=== PATIENT | male | born 1980 | race Caucasian/White ===

== ENCOUNTER 2020-03-15 19:08 | Emergency (ER) | payer BC ==
[2020-03-15] MEDS ORDERED: Sodium Chloride 0.9% 10 ML Syringe FLUSH PRN (19:19)
[2020-03-15] MEDS ORDERED: Ketorolac 60 MG/2 ML SDV IM ONE (19:37)
--- NOTE | 2020-03-15 19:50 | EDM.PDOC ---
ED HPI GENERAL MEDICAL PROBLEM - General Chief Complaint: Chest Pain Stated Complaint: CHEST PAIN Time Seen by Provider: 03/15/20 19:29 Source of Information: Reports: Patient, RN Notes Reviewed History Limitations: Reports: No Limitations - History of Present Illness INITIAL COMMENTS - FREE TEXT/NARRATIVE: Patient is a 39-year-old male who presents to the ED for evaluation of his right-sided chest pain. Patient notes that he developed sharp right-sided chest pain, earlier this morning, he states that it did get worse about the day, and after he dropped his kids off after work today, he states that the pain was so intense that it dropped him to his knees. He states that any sort of movement really makes it worse, and deep breathing also aggravates this. His is a sharp stabbing pain in nature. He states if he can get himself into a certain position, this seems to help make the pain go away. He did not take any sort of pain medications for this. He states that if he pushes on the area, it seems to maybe make the pain better. He denies any family history of cardiac issues, nor does he state he has any history of cardiac or lung issues. He does state that he worked out the other day, and work his chest very hard, and thought maybe it could be due to that as well. He denies any fever/chills, cough/shortness of breath, nausea/vomiting/diarrhea. - Related Data Allergies Allergy/AdvReac Type Severity Reaction Status Date / Time Sulfa (Sulfonamide Allergy Rash Verified 03/15/20 19:16 Antibiotics) Home Meds: Home Meds HYDROcodone/Ibuprofen [Hydrocodone-Ibuprofen 5-200 mg] 1 tab PO BID 03/15/20 [History] ED ROS GENERAL - Review of Systems Review Of Systems: Comprehensive ROS is negative, except as noted in HPI. ED EXAM, GENERAL - Physical Exam Exam: See Below Exam Limited By: No Limitations General Appearance: Alert, WD/WN, No Apparent Distress Eye Exam: Bilateral Eye: EOMI, Normal Inspection, PERRL Throat/Mouth: Normal Inspection, Normal Lips, Normal Teeth, Normal Gums, Normal Oropharynx, Normal Voice, No Airway Compromise Head: Atraumatic, Normocephalic Respiratory/Chest: No Respiratory Distress, Lungs Clear, Normal Breath Sounds, No Accessory Muscle Use, Other (minimal chest tenderness with palpation to upper right chest) Cardiovascular: Normal Peripheral Pulses, Regular Rate, Rhythm, No Murmur Extremities: Normal Inspection, Normal Capillary Refill Neurological: Alert, Oriented, Normal Cognition, No Motor/Sensory Deficits Psychiatric: Normal Affect, Normal Mood Skin Exam: Warm, Dry, Intact, Normal Color, No Rash Course - Vital Signs Last Recorded V/S: Last Vital Signs Temp 98.1 F 03/15/20 19:17 Pulse 100 03/15/20 19:17 Resp 16 03/15/20 19:17 BP 132/85 03/15/20 19:17 Pulse Ox 100 03/15/20 19:17 - Orders/Labs/Meds Orders: Active Orders 24 hr Category Date Time Status EKG Documentation Completion [RC] STAT Care 03/15/20 19:19 Active Peripheral IV Care [RC] . DIRECTED Care 03/15/20 19:19 Active Sodium Chloride 0.9% [Saline Flush] Med 03/15/20 19:19 Active 10 ml FLUSH ASDIRECTED PRN Peripheral IV Insertion Adult [OM.PC] Stat Oth 03/15/20 19:19 Ordered Medication Orders Sodium Chloride (Saline Flush) 10 ml FLUSH ASDIRECTED PRN PRN Reason: Keep Vein Open Last Admin: 03/15/20 20:02 Dose: 10 ml Documented by: RACHAEL Labs: Laboratory Tests 03/15/20 03/15/20 03/15/20 Range/Units 19:55 19:55 19:55 WBC 7.91 (4.23-9.07) K/mm3 RBC 4.66 (4.63-6.08) M/mm3 Hgb 15.3 (13.7-17.5) gm/dl Hct 46.6 (40.1-51.0) % MCV 100.0 H D (79.0-92.2) fl MCH 32.8 H (25.7-32.2) pg MCHC 32.8 (32.2-35.5) g/dl RDW Std Deviation 50.6 H (35.1-43.9) fL Plt Count 341 H (163-337) K/mm3 MPV 8.7 L (9.4-12.3) fl Neut % (Auto) 69.1 H (34.0-67.9) % Lymph % (Auto) 17.8 L (21.8-53.1) % Hooker % (Auto) 10.2 (5.3-12.2) % Eos % (Auto) 1.8 (0.8-7.0) Baso % (Auto) 1.0 (0.1-1.2) % Neut # (Auto) 5.46 H (1.78-5.38) K/mm3 Lymph # (Auto) 1.41 (1.32-3.57) K/mm3 Hooker # (Auto) 0.81 (0.30-0.82) K/mm3 Eos # (Auto) 0.14 (0.04-0.54) K/mm3 Baso # (Auto) 0.08 (0.01-0.08) K/mm3 PT 10.7 (9.7-12.0) SECONDS INR 1.00 APTT 24 (22-31) SECONDS Sodium 143 (136-145) mEq/L Potassium 4.1 (3.5-5.1) mEq/L Chloride 103 (98-107) mEq/L Carbon Dioxide 31 (21-32) mEq/L Anion Gap 13.1 (5-15) BUN 15 (7-18) mg/dL Creatinine 1.3 (0.7-1.3) mg/dL Est Cr Clr Drug Dosing TNP Estimated GFR (MDRD) > 60 (>60) mL/min BUN/Creatinine Ratio 11.5 L (14-18) Glucose 100 (74-106) mg/dL Calcium 8.6 (8.5-10.1) mg/dL Magnesium 2.0 (1.8-2.4) mg/dl Total Bilirubin 0.4 (0.2-1.0) mg/dL AST 53 H (15-37) U/L ALT 69 H (16-63) U/L Alkaline Phosphatase 56 (46-116) U/L Creatine Kinase (39-308) U/L Troponin I < 0.017 (0.00-0.056) ng/mL Total Protein 6.7 (6.4-8.2) g/dl Albumin 3.7 (3.4-5.0) g/dl Globulin 3.0 gm/dL Albumin/Globulin Ratio 1.2 (1-2) 03/15/20 Range/Units 19:55 WBC (4.23-9.07) K/mm3 RBC (4.63-6.08) M/mm3 Hgb (13.7-17.5) gm/dl Hct (40.1-51.0) % MCV (79.0-92.2) fl MCH (25.7-32.2) pg MCHC (32.2-35.5) g/dl RDW Std Deviation (35.1-43.9) fL Plt Count (163-337) K/mm3 MPV (9.4-12.3) fl Neut % (Auto) (34.0-67.9) % Lymph % (Auto) (21.8-53.1) % Hooker % (Auto) (5.3-12.2) % Eos % (Auto) (0.8-7.0) Baso % (Auto) (0.1-1.2) % Neut # (Auto) (1.78-5.38) K/mm3 Lymph # (Auto) (1.32-3.57) K/mm3 Hooker # (Auto) (0.30-0.82) K/mm3 Eos # (Auto) (0.04-0.54) K/mm3 Baso # (Auto) (0.01-0.08) K/mm3 PT (9.7-12.0) SECONDS INR APTT (22-31) SECONDS Sodium (136-145) mEq/L Potassium (3.5-5.1) mEq/L Chloride (98-107) mEq/L Carbon Dioxide (21-32) mEq/L Anion Gap (5-15) BUN (7-18) mg/dL Creatinine (0.7-1.3) mg/dL Est Cr Clr Drug Dosing Estimated GFR (MDRD) (>60) mL/min BUN/Creatinine Ratio (14-18) Glucose (74-106) mg/dL Calcium (8.5-10.1) mg/dL Magnesium (1.8-2.4) mg/dl Total Bilirubin (0.2-1.0) mg/dL AST (15-37) U/L ALT (16-63) U/L Alkaline Phosphatase (46-116) U/L Creatine Kinase 1000 H (39-308) U/L Troponin I (0.00-0.056) ng/mL Total Protein (6.4-8.2) g/dl Albumin (3.4-5.0) g/dl Globulin gm/dL Albumin/Globulin Ratio (1-2) Meds: Medications Generic Name Dose Route Start Last Admin Trade Name Jocelin PRN Reason Stop Dose Admin Sodium Chloride 10 ml 03/15/20 19:19 03/15/20 20:02 Saline Flush FLUSH 10 ml ASDIRECTED PRN Administration Keep Vein Open Discontinued Medications Generic Name Dose Route Start Last Admin Trade Name Jocelin PRN Reason Stop Dose Admin Ketorolac Tromethamine 60 mg 03/15/20 19:37 03/15/20 19:56 Toradol IM 03/15/20 19:38 60 mg ONETIME ONE Administration - Re-Assessments/Exams Free Text/Narrative Re-Assessment/Exam: 03/15/20 19:52 Patient is a 39-year-old male who presents to the ED for evaluation of his chest pain. After talking with the patient, there is a high suspicion for musculoskeletal etiology regarding the chest workout he did a few days ago. Nonetheless EKG was obtained and demonstrates no focal abnormalities that would be concerning for acute ischemia. Other labs will be taken to rule out cardiac etiology. 03/15/20 20:04 Chest x-ray is negative for any acute findings at this time. 03/15/20 21:10 Laboratory evaluation has resulted, the CPK is elevated at 1000, patient states that he does take creatine at home for supplements, and it could be elevated, if the patient may be worked the chest too hard or otherwise. Nonetheless patients can be discharged home with general recommendations, he states that the Toradol did make the pain 60% better. I will give him general recommendations and discharge at this time. Departure - Departure Time of Disposition: 21:11 Disposition: Home, Self-Care 01 Condition: Good Clinical Impression: Acute chest wall pain Instructions: Chest Wall Pain, [id number] Forms: ED Department Discharge Additional Instructions: You have been evaluated in the ED for your right sided chest pain. Your x-ray demonstrated no acute findings. Lab work was also unremarkable. You are not suffering from a heart attack at today's visit. Please use ice/heat as tolerated to the affected area. Please try to keep yourself well-hydrated during this time. You may take Tylenol 500 mg or ibuprofen 600mg q6 hrs for pain relief. Please do so until you have a tolerable level of pain with activity. Do not exceed 4000mg Tylenol or 3200mg ibuprofen in a 24 hour time period. Please return to ED if your symptoms should change or worsen. Sepsis Event Note (ED) - Evaluation Sepsis Screening Result: No Definite Risk - Focused Exam Vital Signs: Vital Signs Temp Pulse Resp BP Pulse Ox 03/15/20 19:17 98.1 F 100 16 132/85 100 - My Orders Last 24 Hours: My Active Orders 03/15/20 19:19 EKG Documentation Completion [RC] STAT Peripheral IV Care [RC] . DIRECTED Sodium Chloride 0.9% [Saline Flush] 10 ml FLUSH ASDIRECTED PRN Peripheral IV Insertion Adult [OM.PC] Stat - Assessment/Plan Last 24 Hours: My Active Orders 03/15/20 19:19 EKG Documentation Completion [RC] STAT Peripheral IV Care [RC] . DIRECTED Sodium Chloride 0.9% [Saline Flush] 10 ml FLUSH ASDIRECTED PRN Peripheral IV Insertion Adult [OM.PC] Stat
--- NOTE | 2020-03-15 20:02 | CR ---
Chest: Portable view of the chest was obtained. Comparison: No prior chest imaging is available. Heart size and mediastinum are normal. Lungs are clear with no acute parenchymal change. Slight scoliosis is present within the spine. Nothing acute is seen within the visualized osseous structures. Impression: 1. Nothing acute is appreciated on portable chest x-ray. Diagnostic code #1 Study was dictated in MDT
== END 2020-03-15 21:18 | disposition home or self-care (01) ==
LOC: JD.ED 19:08
DX: R07.89 Other chest pain (principal); Z88.2 Allergy status to sulfonamides
CPT/HCPCS: 36415; 71045; 80053; 82550; 83735; 84484; 85025; 85610; 85730; 93005; 96372; 99285; J1885; 93010; 99283

== ENCOUNTER 2020-10-13 08:04 | Emergency (ER) | payer BC ==
--- NOTE | 2020-10-13 09:31 | CR ---
Abdomen: Supine and upright views of the abdomen were obtained. Comparison: No prior abdominal x-rays available. Bowel gas pattern is felt to be within normal limits. No free air is seen. Bony structures are within normal limits for the patient's age. Visualized lung bases are clear. No discrete soft tissue abnormality is appreciated. No abnormal calcifications are seen. Impression: 1. Nothing acute is appreciated on 2 view abdominal x-ray. Diagnostic code #1
--- NOTE | 2020-10-13 10:15 | EDM.PDOC ---
ED HPI GENERAL MEDICAL PROBLEM - General Chief Complaint: Gastrointestinal Problem Stated Complaint: RECTAL BLEEDING AND SOB Time Seen by Provider: 10/13/20 08:23 Source of Information: Reports: Patient, RN Notes Reviewed - History of Present Illness INITIAL COMMENTS - FREE TEXT/NARRATIVE: 40 yr old male has been having abd pain on and off for about 2 wks, worse yesterday and today. He has had an uuper abd wall hernia that comes and goes for many months that has also been more bothersome the past couple of weeks. He has had some nauea, no vomting. Has also had some "mucousy" stools with at least some traces of blood. Mild upper abd pain at time of exam. Mostly worried about the hernia. Abdominal Pain Score (Numeric/FACES): 4 - Related Data Allergies Allergy/AdvReac Type Severity Reaction Status Date / Time Sulfa (Sulfonamide Allergy Rash Verified 10/13/20 08:16 Antibiotics) Home Meds: Home Meds HYDROcodone/Ibuprofen [Hydrocodone-Ibuprofen 5-200 mg] 1 tab PO BID PRN 03/15/20 [History] Ondansetron [Zofran ODT] 4 mg PO Q8HR PRN #10 tab.dis 10/13/20 [Rx] Past Medical History - Past Health History Medical/Surgical History: Denies Medical/Surgical History Musculoskeletal History: Reports: Back Pain, Chronic, Other (See Below) Other Musculoskeletal History: chronic knee pain - Past Surgical History GI Surgical History: Reports: Appendectomy, Hernia, Abdominal Social & Family History - Tobacco Use Tobacco Use Status *Q: Never Tobacco User - Caffeine Use Caffeine Use: Reports: Coffee, Energy Drinks - Recreational Drug Use Recreational Drug Use: No ED ROS GENERAL - Review of Systems Review Of Systems: See Below Constitutional: Denies: Fever, Chills, Diaphoresis HEENT: Reports: No Symptoms Respiratory: Denies: Shortness of Breath Cardiovascular: Denies: Chest Pain GI/Abdominal: Reports: Abdominal Pain, Diarrhea (has had some mucousy type diarrhea with some small amounts of blood), Nausea, Other (has had some mu). Denies: Vomiting Musculoskeletal: Reports: No Symptoms Skin: Reports: No Symptoms Neurological: Reports: No Symptoms ED EXAM, GI/ABD - Physical Exam Exam: See Below General Appearance: Alert, No Apparent Distress Throat/Mouth: Normal Inspection Head: Atraumatic Neck: Supple Respiratory/Chest: No Respiratory Distress, Lungs Clear, Normal Breath Sounds Cardiovascular: Tachycardia GI/Abdominal Exam: Soft, Tender (mild tenderness upper abd), Other (no buldging hernia palpable at time of exam). No: Guarding, Rebound Back Exam: No: CVA Tenderness (L), CVA Tenderness (R) Extremities: Normal Inspection, Normal Range of Motion Neurological: Alert, Oriented, No Motor/Sensory Deficits Skin Exam: Warm, Dry, Normal Color Course - Vital Signs Last Recorded V/S: Last Vital Signs Temp 97.3 F 10/13/20 08:18 Pulse 102 H 10/13/20 08:18 Resp 18 10/13/20 08:18 BP 161/95 H 10/13/20 08:18 Pulse Ox 100 10/13/20 08:18 - Orders/Labs/Meds Labs: Laboratory Tests 10/13/20 10/13/20 Range/Units 09:01 09:01 WBC 11.85 H (4.23-9.07) K/mm3 RBC 5.09 (4.63-6.08) M/mm3 Hgb 16.0 (13.7-17.5) gm/dl Hct 47.8 (40.1-51.0) % MCV 93.9 H D (79.0-92.2) fl MCH 31.4 (25.7-32.2) pg MCHC 33.5 (32.2-35.5) g/dl RDW Std Deviation 48.1 H (35.1-43.9) fL Plt Count 420 H D (163-337) K/mm3 MPV 8.7 L (9.4-12.3) fl Neut % (Auto) 84.7 H (34.0-67.9) % Lymph % (Auto) 6.6 L (21.8-53.1) % Harris % (Auto) 7.9 (5.3-12.2) % Eos % (Auto) 0.3 L (0.8-7.0) Baso % (Auto) 0.3 (0.1-1.2) % Neut # (Auto) 10.05 H (1.78-5.38) K/mm3 Lymph # (Auto) 0.78 L (1.32-3.57) K/mm3 Harris # (Auto) 0.94 H (0.30-0.82) K/mm3 Eos # (Auto) 0.03 L (0.04-0.54) K/mm3 Baso # (Auto) 0.03 (0.01-0.08) K/mm3 Manual Slide Review Abnormal smear Sodium 140 (136-145) mEq/L Potassium 5.0 (3.5-5.1) mEq/L Chloride 101 (98-107) mEq/L Carbon Dioxide 28 (21-32) mEq/L Anion Gap 16.0 H (5-15) BUN 16 (7-18) mg/dL Creatinine 1.2 (0.7-1.3) mg/dL Est Cr Clr Drug Dosing 88.92 mL/min Estimated GFR (MDRD) > 60 (>60) mL/min BUN/Creatinine Ratio 13.3 L (14-18) Glucose 99 (74-106) mg/dL Calcium 9.0 (8.5-10.1) mg/dL Total Bilirubin 0.4 (0.2-1.0) mg/dL AST 74 H (15-37) U/L ALT 159 H (16-63) U/L Alkaline Phosphatase 71 (46-116) U/L Total Protein 7.8 (6.4-8.2) g/dl Albumin 3.7 (3.4-5.0) g/dl Globulin 4.1 gm/dL Albumin/Globulin Ratio 0.9 L (1-2) - Re-Assessments/Exams Free Text/Narrative Re-Assessment/Exam: 10/13/20 17:11 Hgb 16, no air fluid levels, discharge instr. as documented. Departure - Departure Time of Disposition: 10:12 Disposition: Home, Self-Care 01 Condition: Fair Clinical Impression: Abdominal pain, Hernia of abdominal wall, Hematochezia - Discharge Information Prescriptions: Ondansetron [Zofran ODT] 4 mg PO Q8HR PRN #10 tab.dis PRN Reason: Nausea/Vomiting Instructions: Abdominal Pain, Adult Referrals: Shelly Walters, [facility] [Primary Care Provider] - Forms: ED Department Discharge Additional Instructions: Clear liquids and bland diet as tolerated. Pepcid (famotidine) 20 mg twice daily to reduce stomach acid. Zofran if needed for nausea or vomiting. Prescription has been sent to [facility] at [facility]. See Zo tomorrow as planned. Return to ED as needed. Sepsis Event Note (ED) - Evaluation Sepsis Screening Result: No Definite Risk - Focused Exam Vital Signs: Vital Signs Temp Pulse Resp BP Pulse Ox 10/13/20 08:18 97.3 F 102 H 18 161/95 H 100
== END 2020-10-13 10:38 | disposition home or self-care (01) ==
LOC: JD.ED 08:04
DX: K43.9 Ventral hernia without obstruction or gangrene (principal); K92.1 Melena; Z88.2 Allergy status to sulfonamides
CPT/HCPCS: 36415; 74019; 74019-26; 80053; 85025; 99283; 99283-25

== ENCOUNTER → 2020-10-18 | Day surgery (SDC) | payer BC ==
[~2020-10-18] MED LIST: Bupivacaine 0.5%/EPINEPHrine 1:200,000 50 ML MDV ONE; Dexamethasone 4 MG/ML 5 ML MDV ONE; HYDROmorphone 0.5 MG/0.5 ML Syringe IVPUSH PRN; HYDROmorphone 0.5 MG/0.5 ML Syringe ONE; Ketamine 500 mg/10 ML MDV ONE; Ketorolac 30 MG/ML SDV ONE; Lactated Ringers 1,000 ML IV SCH; Lactated Ringers 1,000 ML ONE; Lidocaine 1% 4 ML ONE; Lidocaine 1%/Sod Bicarbonate in NS 8.4% 1 ML Syringe IDERM PRN; Midazolam 1 MG/ML 2 ML SDV ONE; Ondansetron 4 MG/2 ML SDV IVPUSH PRN; Ondansetron 4 MG/2 ML SDV ONE; Propofol 200 MG/20 ML SDV ONE; Rocuronium 50 MG/5 ML Vial ONE; Sodium Chloride 0.9% 10 ML Syringe FLUSH PRN; ceFAZolin 1 GM Vial ONE; fentaNYL 100 MCG/2 ML SDV IVPUSH PRN; fentaNYL 250 MCG/5 ML SDV ONE; oxyCODONE 5 MG Tab PO ONE
--- NOTE | 2020-10-18 10:53 | PCM.PREANE ---
Preanesthetic Assessment - Anesthesia/Transfusion/Family Hx Anesthesia History: Prior Anesthesia Without Reaction Family History of Anesthesia Reaction: No Transfusion History: No Prior Transfusion(s) - Review of Systems General: Other (ADHD, chronic back pain, arthritis) Neurological: Other (cervical spine disease) Other: Reports: Anxiety - Physical Assessment NPO Status Date: 10/18/20 NPO Status Time: 06:30 (pt had candybar that he chewed up and spit out. initially told nurse it was 0830 and he drank water. surgeon notified of guidelines and able to proceed at 1230) Weight: 95.9 kg ASA Class: 2 Mental Status: Alert & Oriented x3 Airway Class: Mallampati = 2 Dentition: Reports: Normal Dentition Thyro-Mental Finger Breadths: 3 Mouth Opening Finger Breadths: 3 ROM/Head Extension: Full Lungs: Clear to Auscultation, Normal Respiratory Effort Cardiovascular: Regular Rate, Regular Rhythm - Allergies Allergies/Adverse Reactions: Allergies Allergy/AdvReac Type Severity Reaction Status Date / Time Sulfa (Sulfonamide Allergy Rash Verified 10/13/20 08:16 Antibiotics) - Blood Blood Available: No Product(s) Available: None - Acknowledgements Anesthesia Type Planned: General Anesthesia Pt an Appropriate Candidate for the Planned Anesthesia: Yes Alternatives and Risks of Anesthesia Discussed w Pt/Guardian: Yes Pt/Guardian Understands and Agrees with Anesthesia Plan: Yes PreAnesthesia Questionnaire - Past Health History Medical/Surgical History: Denies Medical/Surgical History Musculoskeletal History: Reports: Back Pain, Chronic, Other (See Below) Other Musculoskeletal History: chronic knee pain - Past Surgical History GI Surgical History: Reports: Appendectomy, Hernia, Abdominal - HOME MEDS Home Medications: Home Meds HYDROcodone/Ibuprofen [Hydrocodone-Ibuprofen 5-200 mg] 1 tab PO BID PRN 03/15/20 [History] Ondansetron [Zofran ODT] 4 mg PO Q8HR PRN #10 tab.dis 10/13/20 [Rx] - CURRENT (IN HOUSE) MEDS Current Meds: Current Medications Discontinued Medications Cefazolin Sodium (Cefazolin 1 Gm Vial) Confirm Administered Dose 2 gm .ROUTE .STK-MED ONE Stop: 10/18/20 08:42 Dexamethasone (Dexamethasone 4 Mg/Ml 5 Ml Mdv) Confirm Administered Dose 20 mg .ROUTE .STK-MED ONE Stop: 10/18/20 08:44 Fentanyl (Fentanyl 250 Mcg/5 Ml Sdv) Confirm Administered Dose 250 mcg .ROUTE .STK-MED ONE Stop: 10/18/20 08:42 Lactated Ringer's (Ringers, Lactated) Confirm Administered Dose 1,000 mls @ as directed .ROUTE .STK-MED ONE Stop: 10/18/20 08:42 Lidocaine HCl (Xylocaine-Mpf 1%) Confirm Administered Dose 4 mls @ as directed .ROUTE .STK-MED ONE Stop: 10/18/20 08:44 Ketamine HCl (Ketamine 500 Mg/10 Ml Mdv) Confirm Administered Dose 500 mg .ROUTE .STKlee [employer]-MED ONE Stop: 10/18/20 08:42 Ketorolac Tromethamine (Ketorolac 30 Mg/Ml Sdv) Confirm Administered Dose 30 mg .ROUTE .STK-MED ONE Stop: 10/18/20 08:44 Midazolam HCl (Midazolam 1 Mg/Ml 2 Ml Sdv) Confirm Administered Dose 2 mg .ROUTE .STKlee [employer] System-MED ONE Stop: 10/18/20 08:42 Ondansetron HCl (Ondansetron 4 Mg/2 Ml Sdv) Confirm Administered Dose 4 mg .ROUTE .STKlee [employer] System-MED ONE Stop: 10/18/20 08:44 Propofol (Propofol 200 Mg/20 Ml Sdv) Confirm Administered Dose 200 mg .ROUTE .STK-MED ONE Stop: 10/18/20 08:42 Rocuronium [place] (Rocuronium 50 Mg/5 Ml Vial) Confirm Administered Dose 50 mg .ROUTE .STKlee Data System-MED ONE Stop: 10/18/20 08:42
--- NOTE | 2020-10-18 13:25 | PCM.PRNOTE ---
- Free Text/Narrative Note: Date: 10/18/2020 Operation: laparoscopic primary repair of epigastric and umbilical hernias Surgeon: Bhaskar Parkinson MD Findings: small midline epigastric hernia about 1 cm in size containing fatty tissue from the falciform ligament. Similar size small umbilical hernia. Both repaired primarily with 1 prolene figure of eight suture. Minor injury to left lobe of liver on Veress placement for pneumoperitoneum. Detailed Report: The patient was taken to the operating room and placed in supine position. T imeout was performed and general endotracheal anesthesia was initiated. Hair was clipped and the abdomen was prepped and draped in usual sterile fashion. A Veress needle was placed in the left upper quadrant in order to establish pneumoperitoneum. During insufflation, there were some elevated pressures on the monitor. Pneumoperitoneum was aspirated at the left lower quadrant, and a bladed 5 mm trocar was inserted at this site. A 5 mm 30 degree laparoscope was inserted into the abdomen. The site of Veress insertion was inspected, and there appeared to be a minor bleeding injury to the left lobe of the liver. The Veress needle was removed, and an additional 5 mm bladed trocar was placed at the site of initial Veress placement. Hook monopolar energy was used to establish hemostasis at the liver injury site. There was minimal blood loss related to this. There appeared to be a small subcentimeter umbilical hernia and epigastric hernia which contained fatty tissue from the falciform ligament. Attention was placed in the falciform ligament, and monopolar was used to take the falciform down from the anterior abdominal wall. The herniated fat was reduced, and the hernia sac was removed. This hernia appeared small enough and was in a location that mesh reinforcement was deemed unnecessary. A small stab incision was made over the site of the epigastric hernia, and a laparoscopic suture passer was used to place a #1 Prolene [id number] suture to close the fascial defect. A similar technique was used to close the umbilical hernia after removal of the 5 mm port at this site. Remaining ports were removed under laparoscopic visualization and pneumoperitoneum was released. Skin incisions were closed with 4-0 Vicryl and dressed with Dermabond. A total of 30 cc 0.5% Marcaine with epinephrine was injected for local anesthetic. The patient tolerated the procedure well, was extubated in the operating room and transferred to the recovery unit in good condition.
--- NOTE | 2020-10-18 13:34 | PCM.POSTAN ---
POST ANESTHESIA ASSESSMENT - MENTAL STATUS Mental Status: Alert, Oriented - VITAL SIGNS Vital Signs: Last Vital Signs Temp 37.3 C 10/18/20 10:22 Pulse 109 H 10/18/20 10:22 Resp 17 10/18/20 10:22 BP 146/86 H 10/18/20 10:22 Pulse Ox 97 10/18/20 10:22 - RESPIRATORY Respiratory Status: Respiratory Rate WNL, Airway Patent, O2 Saturation Stable, Supplemental Oxygen - CARDIOVASCULAR CV Status: Pulse Rate WNL, Blood Pressure Stable - GASTROINTESTINAL GI Status: No Symptoms - PAIN Pain Score: 3 - POST OP HYDRATION Hydration Status: Adequate & Stable
--- NOTE | 2020-10-18 14:20 | PCM48HPAN ---
Post Anesthesia Note - EVALUATION WITHIN 48HRS OF ANESTHETIC Vital Signs in Normal Range: Yes Patient Participated in Evaluation: Yes Respiratory Function Stable: Yes Airway Patent: Yes Cardiovascular Function Stable: Yes Hydration Status Stable: Yes Pain Control Satisfactory: Yes Nausea and Vomiting Control Satisfactory: Yes Mental Status Recovered: Yes Vital Signs: Last Vital Signs Temp 37.2 C 10/18/20 14:15 Pulse 109 H 10/18/20 10:22 Resp 12 10/18/20 14:15 BP 156/90 H 10/18/20 14:15 Pulse Ox 91 L 10/18/20 14:15
== END | disposition home or self-care (01) ==
LOC: JD.SDS 09:31
PROVIDERS: ATTEND Surgery
DX: K43.9 Ventral hernia without obstruction or gangrene (principal); K42.9 Umbilical hernia without obstruction or gangrene; Z01.812 Encounter for preprocedural laboratory examination; Z20.822 Contact with and (suspected) exposure to COVID-19; Z79.899 Other long term (current) drug therapy; Z88.2 Allergy status to sulfonamides; Z98.890 Other specified postprocedural states; Z87.891 Personal history of nicotine dependence
CPT/HCPCS: 49652; A9270; J0690; J1100; J1170; J1885; J2250; J2405; J2704; J2710; J3010; J3490; J7120; 00790

== ENCOUNTER 2021-07-08 05:36 | Emergency (ER) | payer BC ==
[2021-07-08] MEDS ORDERED: Ketorolac 15 MG/ML SDV IVPUSH ONE (05:59)
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
[2021-07-08] MEDS ORDERED: Iopamidol 612 MG/ML 100 ML Bottle IVPUSH ONE (07:10)
[2021-07-08] MEDS ORDERED: Sodium Chloride 0.9% 10 ML SDV FLUSH ONE (07:10)
--- NOTE | 2021-07-08 07:10 | CR ---
Chest: Portable view of the chest was obtained. Comparison: Prior chest x-ray of 03/15/20. Heart size and mediastinum are normal. Lungs are clear with no acute parenchymal change. Bony structures show nothing acute. Impression: 1. Nothing acute is seen on portable chest x-ray. Diagnostic code #1
--- NOTE | 2021-07-08 07:28 | CT ---
CT chest Technique: Multiple axial sections were obtained from above the lung apices inferiorly through the lung bases. Intravenous contrast initially was not utilized. Study was repeated after intravenous contrast was administered. Reconstructed coronal and sagittal images were obtained. Comparison: Prior chest x-ray performed earlier on the same day (6:14 AM). No prior chest CT study is available. Findings: Visualized upper abdominal structures show nothing acute. Heart size is normal. No pericardial thickening is seen. Thoracic aorta shows no aneurysm. No mediastinal adenopathy is seen. No mediastinal hematoma is seen. No axillary adenopathy is seen. Lungs are clear with no acute parenchymal change. No pleural effusions are seen. No pneumothorax is seen. Bone window settings were reviewed. Healing rib fracture is seen within the anterolateral seventh rib. Fracture line is still is visible. No definite acute rib fracture is seen. Thoracic spine shows nothing acute. Reconstructed sagittal images of the sternum appear intact. Impression: 1. Healing fracture within the anterolateral right seventh rib. Fracture line is still visible. 2. No other acute abnormality is appreciated on CT study of the chest. Diagnostic code #2
== END 2021-07-08 08:35 | disposition home or self-care (01) ==
LOC: JD.ED 05:36
DX: S22.31XA Fracture of one rib, right side, initial encounter for closed fracture (principal); Z88.2 Allergy status to sulfonamides; X50.1XXA Overexertion from prolonged static or awkward postures, initial encounter
CPT/HCPCS: 36415; 71045; 71270; 80053; 83690; 85025; 85379; 85610; 96374; 99284; J1885; Q9967